=== PATIENT | female | born 1995 | race African-American/Black ===

== ENCOUNTER 2020-08-24 04:06 | Emergency (ER) | payer OTHER ==
[2020-08-24 05:19] VITALS: BP 120/71; PULSE 74; TEMP 98.4; BMI 33.5
[2020-08-24] MEDS ORDERED: ACETAMINOPHEN 325 MG TABLET (FP) PO ONE (06:18)
[2020-08-25 20:07] LABS: SARS-CoV-2 NAA Not Detected (Not Detected)
== END 2020-08-24 06:59 | disposition home or self-care (01) ==
LOC: JER 04:06
DX: R06.02 Shortness of breath (principal); M94.0 Chondrocostal junction syndrome [Tietze]; R07.82 Intercostal pain
CPT/HCPCS: 71045-TC-FY; 93005; 93010; 99285-25; C9803; U0003; U0005